=== PATIENT | female | born 1940 | race Two or more races ===

== ENCOUNTER 2021-08-18 12:52 | Outpatient (CLI) | payer OTHER ==
[~2021-08-18 12:52] MED LIST: DILTIAZEM ER180 M1; LISINOPRIL20 MG; TIZANIDINE HCL2 MG PO; ZANAFLEX2 MG PO
== END 2021-08-18 13:01 | disposition home or self-care (01) ==
LOC: RAD 12:52
DX: M51.37 Other intervertebral disc degeneration, lumbosacral region (principal); M99.01 Segmental and somatic dysfunction of cervical region; M99.02 Segmental and somatic dysfunction of thoracic region; M99.03 Segmental and somatic dysfunction of lumbar region